=== PATIENT | male | born 1965 | race Caucasian/White ===

== ENCOUNTER 2022-08-04 10:09 | Outpatient (CLI) | payer BC | END 2022-08-04 10:10 | disposition home or self-care (01) | LOC: CSHRAD 10:09 | DX: R13.14 Dysphagia, pharyngoesophageal phase (principal); K21.00 Gastro-esophageal reflux disease with esophagitis, without bleeding; K29.60 Other gastritis without bleeding; K22.4 Dyskinesia of esophagus | CPT/HCPCS: 74220 ==